=== PATIENT | female | born 1955 | race African-American/Black ===

== ENCOUNTER → 2017-02-19 | Outpatient (CLI) | payer MEDICARE, OTHER ==
[~2017-02-19] MED LIST: ACCUPRIL; AMITRYPTYLINE; ASPIRIN PO; CHEWABLE ASPIRI81 MG PO; COSOPT EYE DROPS5 ML OP; FLEXERIL; HCTZ PO; HYDROCHLOROTHIA25 MG PO; IBUPROFEN; IBUPROFEN PO; IBUPROFEN800 MG PO; LASIX; LISINOPRIL PO; LISINOPRIL20 MG PO; LO-DOSE ASPIRIN81 M1 PO; LOPRESSOR PO; LORTAB 101 TAB 10/5 PO; LOTREL 10/20 MG1 CAP PO; LOTREL 5-20 MG1 CAP PO; LOTREL 5/20 MG1 CAP PO; METOPROLOL TART25 MG PO; NASONEX17 GM; NITROSTAT0.4 MG SL; PRAVASTATIN SOD10 MG PO; PRED FORTE1 ML OP; SUDAFED PO; TOBRADEX EYE DRO5 ML OP; ULTRAM PO; VICODIN 5/1 TAB 5/50 PO; VITAMIN D50000 UNIT PO; VOLTAREN75 MG PO; ZITHROMAX PO; ZOLOFT
--- NOTE | ~2017-02-19 | MY11 ---
[facility] A Service of [facility] & [facility] RADIOLOGY TEXT RESULTS PATIENT: KEM TAYLOR LOCATION: [facility] : 57 UNIT #: [id number] AGE: [address]: Cassie Sanford MD SEX: F ORDER DR: [id number] [facility] [address] [place], [place] [address] [id number] O MR#: [id number] Acc #: [id number] NAME: KEM TAYLOR : 1955 SEX: F STUDY DATE/TIME: 02/19/2017 13:05 UNIT: [facility] ROOM: STUDY DESCRIPTION: MY Mammogram Screening Dig Brown Attending Physician: Cassie Sanford M.D. Ordering Physician: Cassie Sanford M.D. Primary Care Physician: Cassie Sanford M.D. MEDICAL IMAGING REPORT This report is preliminary unless electronic signature is present EXAM Digital screening mammogram, 02/19/2017 HISTORY 62-year-old woman previous reduction mammoplasties. No risk elevation. Annual screening. COMPARISON 05/24/2014, 06/15/2015, 02/03/2016 FINDINGS Digital imaging of each breast was completed utilizing a two-view examination of each breast in craniocaudal and mediolateral-oblique projections. Review and interpretation of digital mammograms include a second review in conjunction with FDA-approved CAD device. There is a normal parenchymal presentation bilaterally consistent with the patient's age. There are no breast masses imaged and no parenchymal asymmetry is visualized. There are no suspicious microcalcifications and I see no focal architectural disturbance. IMPRESSION Negative screening digital mammogram. One-year followup recommended. ADDENDUM Breast parenchyma is fatty replaced. Patients over the age of 40 are entered into a reminder system with target due date for the next mammogram. A result letter will also be sent to the patient. BIRADS: 1 Negative [facility] A Service of [facility] & [facility] RADIOLOGY TEXT RESULTS PATIENT: KEM TAYLOR LOCATION: [facility] : 57 UNIT #: [id number] AGE: [address]: Cassie Sanford MD SEX: F ORDER DR: Dictated by... Victorino Rodriguez M.D. THIS IS AN ELECTRONICALLY VERIFIED REPORT Victorino Rodriguez M.D. at 02/20/2017 8:06 AM KUSUM/elier TD: 02/19/2017 20:29 JOB #: [id number] MEDICAL IMAGING REPORT Page 1 of 1 COPY
== END | disposition home or self-care (01) ==
LOC: CWCC 12:40
DX: Z12.31 Encounter for screening mammogram for malignant neoplasm of breast (principal)
CPT/HCPCS: G0202

== ENCOUNTER → 2017-02-26 | Outpatient (CLI) | payer MEDICARE, OTHER ==
--- NOTE | ~2017-02-26 | US98 ---
[facility] A Service [facility] RADIOLOGY TEXT RESULTS PATIENT: KEM TAYLOR LOCATION: [facility] : 57 UNIT #: [id number] AGE: [address]: ERA WINSTON SEX: F ORDER DR: [id number] [facility] [address] [place], [place] [address] [id number] O MR#: [id number] Acc #: [id number] NAME: KEM TAYLOR : 1955 SEX: F STUDY DATE/TIME: 02/26/2017 11:17 UNIT: [facility] ROOM: STUDY DESCRIPTION: US Pelvic Non-OB Complete Attending Physician: Oswaldo Spear Referring Physician: Cassie Sanford M.D. Ordering Physician: Oswaldo Spear Primary Care Physician: Cassie Sanford M.D. MEDICAL IMAGING REPORT This report is preliminary unless electronic signature is present EXAM Pelvic ultrasound INDICATIONS Lower pelvic pain since 2012. TECHNIQUE Martinez scale, color Doppler and spectral Doppler waveform analysis was performed through the pelvis both transabdominally and transvaginally. FINDINGS The last normal menstrual period was 1996. Patient is status post hysterectomy. FINDINGS This is a very technically limited study due to overlying bowel gas. Uterus is surgically absent, the right ovary is grossly unremarkable and normal color-Doppler flow is seen. The left ovary cannot be visualized. IMPRESSION Extremely technically limited examination due to overlying bowel gas. Uterus is surgically absent and left ovary cannot be seen. Patient does appear to have color Doppler flow within a grossly normal-appearing right ovary. Dictated by... Melissa Duke M.D. THIS IS AN ELECTRONICALLY VERIFIED REPORT Melissa Duke M.D. at 02/26/2017 3:44 PM AFF/cmm [facility] A Service [facility] RADIOLOGY TEXT RESULTS PATIENT: KEM TAYLOR LOCATION: [facility] : 57 UNIT #: [id number] AGE: [address]: ERA WINSTON SEX: F ORDER DR: TD: 02/26/2017 15:20 JOB #: [id number] MEDICAL IMAGING REPORT Page 1 of 1 COPY
== END | disposition home or self-care (01) ==
LOC: CWCC 11:02
DX: R10.30 Lower abdominal pain, unspecified (principal); R14.3 Flatulence; Z90.710 Acquired absence of both cervix and uterus
CPT/HCPCS: 76830; 76856

== ENCOUNTER → 2017-03-14 | Outpatient (CLI) | payer MEDICARE, OTHER ==
--- NOTE | ~2017-03-14 | EKG ---
PATIENT: KEM TAYLOR UNIT #: [id number] Ventricular Rate: 70 BPM Atrial Rate: 70 BPM P-R Interval: 124 ms QRS Duration: 88 ms Q-T Interval: 410 ms QTC Calculation(Bezet): 442 ms P [place]: 61 degrees Calculated R [place]: 40 degrees Calculated T [place]: 81 degrees Diagnosis Line: Normal sinus rhythm Diagnosis Line: Possible Left atrial enlargement Diagnosis Line: Left ventricular hypertrophy Diagnosis Line: Nonspecific ST and T wave abnormality Diagnosis Line: Abnormal ECG Diagnosis Line: When compared with ECG of 17-JUL-2015 08:01, Diagnosis Line: No significant change was found Diagnosis Line: Confirmed by ZANE CORDERO MD ([id number]) on 03/15/2017 Diagnosis Line: 6:11:14 AM INTERPRETING MD: CONSUELO BASSETT
--- NOTE | ~2017-03-14 | CR63 ---
[facility] A Service of [facility] & [facility] RADIOLOGY TEXT RESULTS PATIENT: KEM TAYLOR LOCATION: [facility] : 57 UNIT #: [id number] AGE: [address]: ERA WINSTON SEX: F ORDER DR: [id number] [facility] [address] [place], [place] [address] [id number] O MR#: [id number] Acc #: [id number] NAME: KEM TAYLOR : 1955 SEX: F STUDY DATE/TIME: 03/14/2017 11:19 UNIT: [facility] ROOM: STUDY DESCRIPTION: CR Chest 2 View Attending Physician: Oswaldo Spear Referring Physician: Oswaldo Spear Ordering Physician: Oswaldo Spear Primary Care Physician: Cassie Sanford M.D. MEDICAL IMAGING REPORT This report is preliminary unless electronic signature is present EXAM Chest PA and lateral 03/14/2017 HISTORY Preop left knee surgery. Chest congestion for 1 week. Benign essential hypertension. FINDINGS The heart is enlarged but stable compared with 07/15/2015. The lungs are clear. There are no pleural effusions. IMPRESSION Stable cardiomegaly compared with 07/15/2015. No active pulmonary disease. Dictated by... Jak Bingham M.D. THIS IS AN ELECTRONICALLY VERIFIED REPORT Jak Bingham M.D. at 03/15/2017 9:34 AM DHAVAL/katerina TD: 03/14/2017 15:14 JOB #: [id number] MEDICAL IMAGING REPORT Page 1 of 1 COPY
== END | disposition home or self-care (01) ==
LOC: CEKG 10:46
DX: Z01.818 Encounter for other preprocedural examination (principal); I51.7 Cardiomegaly
CPT/HCPCS: 71020; 93005

== ENCOUNTER 2017-03-16 21:50 | Emergency (ER) | payer OTHER, MEDICARE ==
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
--- NOTE | ~2017-03-16 | CR229 ---
[facility] A Service [facility] RADIOLOGY TEXT RESULTS PATIENT: KEM TAYLOR LOCATION: [facility] : 57 UNIT #: [id number] AGE: [address]: Dejah Barillas MD SEX: F ORDER DR: [id number] [facility] [address] [place], [place] [address] [id number] E MR#: [id number] Acc #: [id number] NAME: KEM TAYLOR : 1955 SEX: F STUDY DATE/TIME: 03/16/2017 21:13 UNIT: [facility] ROOM: STUDY DESCRIPTION: CR Shoulder Min 2 View Lt Attending Physician: Dejah Barillas M.D. Ordering Physician: Ed Scott Gonzalez M.D. Primary Care Physician: Cassie Sanford M.D. MEDICAL IMAGING REPORT This report is preliminary unless electronic signature is present EXAM Left shoulder series dated 03/16/2017. COMPARISON Left shoulder series dated 08/12/2012. HISTORY Left shoulder pain from 03/16/2017, painful breathing. FINDINGS Three views of the left shoulder were obtained. AP view with internal and external rotation of the shoulder girdle shows satisfactory relationship of the humeral head and glenoid fossa. The joint space is normal. There is no identifiable fracture or dislocation or bony destructive process about the shoulder girdle anatomy. The acromioclavicular joint is normal. There is no radiopaque foreign body in the region. IMPRESSION Normal shoulder. Dictated by... Marcio Ba M.D. THIS IS AN ELECTRONICALLY VERIFIED REPORT Marcio Ba M.D. at 03/18/2017 1:45 PM CPR/psc TD: 03/17/2017 16:04 JOB #: [id number] [facility] A Service [facility] RADIOLOGY TEXT RESULTS PATIENT: KEM TAYLOR LOCATION: [facility] : 57 UNIT #: [id number] AGE: [address]: Dejah Barillas MD SEX: F ORDER DR: MEDICAL IMAGING REPORT Page 1 of 1 COPY
--- NOTE | ~2017-03-16 | CR58 ---
[facility] A Service of [facility] RADIOLOGY TEXT RESULTS PATIENT: KEM TAYLOR LOCATION: [facility] : 57 UNIT #: [id number] AGE: [address]: Dejah Barillas MD SEX: F ORDER DR: [id number] [facility] [address] [place], [place] [address] [id number] E MR#: [id number] Acc #: [id number] NAME: KEM TAYLOR : 1955 SEX: F STUDY DATE/TIME: 03/16/2017 21:09 UNIT: [facility] ROOM: STUDY DESCRIPTION: CR Cervical Spine 2 or 3 Views Attending Physician: Dejah Barillas M.D. Ordering Physician: Dejah Barillas M.D. Primary Care Physician: Cassie Sanford M.D. MEDICAL IMAGING REPORT This report is preliminary unless electronic signature is present EXAM Cervical spine series dated 03/16/2017. COMPARISON MRI cervical spine without contrast dated 11/30/2016. HISTORY Painful breathing from 03/16/2017. Neck pain. FINDINGS 5 views of the cervical spine were obtained. No acute displaced fracture or subluxation. Degenerative changes are noted from C5-6 to C6-7 levels with endplate osteophytes and loss of disc height. Pre- and paravertebral soft tissues are unremarkable. C1-2 and C7-T1 junctions are intact. Pre- and paravertebral soft tissues are within normal limits. Mediastinal calcified lymph nodes are noted in the right lateral aspect suggestive of old granulomatous disease. IMPRESSION 1. No acute displaced fracture or subluxation. 2. Degenerative changes are noted with endplate osteophytes and loss of disc height at C5-6 and C6-7. Dictated by... Marcio Ba M.D. THIS IS AN ELECTRONICALLY VERIFIED REPORT Marcio Ba M.D. at 03/18/2017 1:45 PM CPR/psc TD: 03/17/2017 16:00 JOB #: [id number] [facility] A Service of [facility] RADIOLOGY TEXT RESULTS PATIENT: KEM TAYLOR [id number] 57 UNIT #: [id number] AGE: [address]: Dejah Barillas MD SEX: F ORDER DR: MEDICAL IMAGING REPORT Page 1 of 1 COPY
== END 2017-03-16 22:38 | disposition home or self-care (01) ==
LOC: CED 21:50
DX: S40.011A Contusion of right shoulder, initial encounter (principal); V89.2XXA Person injured in unspecified motor-vehicle accident, traffic, initial encounter; Y92.410 Unspecified street and highway as the place of occurrence of the external cause
CPT/HCPCS: 71020; 72040; 73030; 99284